=== PATIENT | female | born 1955 | race Caucasian/White ===

== ENCOUNTER → 2016-11-19 | Outpatient (CLI) | payer OTHER ==
--- NOTE | 2016-11-19 12:06 | MR ---
MRI of the Lumbar Spine (Without Contrast) at 1039 hours Clinical Indications: Pain post fall, lower thoracic spine fracture, tripped, ran into wall. Comparison: CT of June 2014. Technique: Sagittal and axial T1 and T2 and sagittal STIR MR sequences of the lumbar spine without c ontrast. Axial imaging from T9 through S1. Findings: Subacute moderate compression fracture of the T10 vertebral body with fracture lines exten ding through the anterior and posterior cortex as well as the superior and inferior endplates demonst rating 10% loss of height centrally without retropulsion, central canal stenosis or neural foraminal stenosis. Conus medullaris appears normal and ends at L1. T9-T10: Mild degenerative disk disease without disk herniation or stenosis. T10-T11: No disk herniation or stenosis. T11-T12: No disk herniation or stenosis. T12-L1: No disk herniation or stenosis. L1-L2: No disk herniation or stenosis. L2-L3: No disk herniation or stenosis. L3-L4: Mild bilateral facet arthropathy without disk herniation or stenosis. L4-L5: Mild bilateral facet arthropathy without disk herniation or stenosis. Mild bilateral facet art hropathy without disk herniation or stenosis. L5-S1: Mild bilateral facet arthropathy and mild degenerative disk disease without disk herniation or stenosis. 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 Impression: 1. T10 subacute moderate compression fracture without retropulsion, central canal stenosis, neural fo raminal stenosis, or cord compression. 2. No lumbar disk herniations, central canal stenosis or neural foraminal stenosis. 3. Please see above findings at specific disk levels. 4. Consider DEXA bone scan evaluation for osteoporosis if clinically indicated. If there is persistent back pain consider interventional radiology consult for kyphoplasty. ([facility] Radiologists: Dr. Isa Brower [phone] Raman Corona [phone])
== END ==
LOC: FIMAGING 10:17
PROVIDERS: ATTEND Family Medicine
DX: S22.070A Wedge compression fracture of T9-T10 vertebra, initial encounter for closed fracture (principal)

== ENCOUNTER → 2017-03-06 | Outpatient (CLI) | payer OTHER | LOC: CIMAGING 09:47 | DX: Z12.31 Encounter for screening mammogram for malignant neoplasm of breast (principal) | CPT/HCPCS: G0202 ==

== ENCOUNTER → 2017-11-20 | Outpatient (CLI) | payer OTHER | LOC: FIMAGING 11:58 | PROVIDERS: ATTEND Physical Medicine & Rehabilitation | DX: M46.92 Unspecified inflammatory spondylopathy, cervical region (principal); M48.02 Spinal stenosis, cervical region; M50.222 Other cervical disc displacement at C5-C6 level ==

== ENCOUNTER → 2018-03-12 | Outpatient (CLI) | payer OTHER | LOC: CIMAGING 08:22 | PROVIDERS: ATTEND Family Medicine | DX: Z12.31 Encounter for screening mammogram for malignant neoplasm of breast (principal) ==

== ENCOUNTER → 2019-03-25 | Outpatient (CLI) | payer OTHER | LOC: CIMAGING 12:58 | PROVIDERS: ATTEND Family Medicine | DX: Z12.31 Encounter for screening mammogram for malignant neoplasm of breast (principal) ==